=== PATIENT | male | born 1985 | race Caucasian/White ===

== ENCOUNTER 2020-01-25 13:15 | Inpatient (IN) | payer SELFPAY ==
[2020-01-25] VITALS (8 sets, daily range): BP systolic 104–124; BP diastolic 53–69; PULSE 78–98; RESP 18–20; TEMP 37.1–37.4; O2SAT 98–100; BMI 26.4
--- NOTE | ~2020-01-25 | CT_ITS ---
EXAMINATION: CT abdomen pelvis w con EXAM DATE: 01/25/2020 16:34 INDICATION: Right lower quadrant pain. Constipation. TECHNIQUE: Spiral CT of the abdomen and pelvis was performed following intravenous injection of 100 m L Omnipaque 350. Axial, coronal and sagittal images were reviewed. The dose-length product (DLP) fo r this examination was 434.22 mGy-cm. The exposure was tailored according to patient size (auto mA e xposure control), and iterative reconstruction (ASIR) was used as additional dose reduction technique . There is no prior study for comparison. FINDINGS: The liver, spleen, adrenal glands and pancreas are unremarkable. Gallbladder is unremarkab le. No biliary obstruction. Portal and splenic veins are patent. Kidneys enhance symmetrically. T here is no hydronephrosis. The prostate is unremarkable. The bladder is unremarkable. There is no retroperitoneal or pelvic lymphadenopathy. The appendix is dilated up to 1.1 cm, has some fluid inside and adjacent fat stranding. Appearance co nsistent with acute appendicitis without perforation or abscess. The stomach and small bowel are unre markable. There is expected amount of colonic stool. No free intraperitoneal gas. The heart is n ormal in size. There are no pericardial or pleural effusions. The lung bases are unremarkable. The bones are unremarkable. IMPRESSION: 1. Acute uncomplicated appendicitis. I discussed acute appendicitis with Dr. Rodriguez at 01/25/2020 16:49 CDT. Reviewed, dictated and finalized at location A.
[2020-01-25] MEDS: ONDANSETRON INJ 4 MG/2 ML VIAL IV PUSH (15:07)
[2020-01-25] MEDS: MORPHINE SULFATE 2 MG/ML INJ IV PUSH ×2 (15:07→17:30)
[2020-01-25 15:15] LABS: Hemoglobin 17.1 g/dL (14.0-18.0); Mean Corpuscular HGB Conc 34.2 g/dl (32-36); Mean Corpuscular Volume 90.7 fl (80-100); Mean Platelet Volume 10.1 fl (7.4-10.4); Platelet Count Result 251 k/mm3 (150-375); Red Blood Count 5.51 M/mm3 (4.6-6.20); Red Cell Distribution Width 13.5 % (11.5-14.5); White Blood Count 20.2 K/mm3 (4.5-10.0)
[2020-01-25 15:21] LABS: Alanine Aminotransferase 28 U/L (4-50); Albumin Level 4.5 g/dL (3.5-5.1); Alkaline Phosphatase 48 U/L (38-126); Aspartate Amino Transferase 23 U/L (17-59); Blood Urea Nitrogen 11 mg/dL (9-20); Calcium 9.5 mg/dL (8.4-10.2); Carbon Dioxide 24 mmol/L (22-30); Chloride 104 mmol/L (98-107); Estimated CRCL calculation 100 ml/min; Estimated Glomerular Filt Rate > 60; Glucose 106 mg/dL (75-110); Potassium 4.9 mmol/L (3.4-5.0); Sodium 137 mmol/L (137-145)
[2020-01-25 15:35] LABS: Band Neutrophils Percent 3 % (0-6); Lymphocytes Absolute Manual 1.61 K/mm3 (1.1-4.5); Monocytes Absolute Manual 1.01 K/mm3 (0.1-0.90); Monocytes Percent Manual 5 % (3-9); Neutrophils Absolute Manual 17.57 K/mm3 (1.3-6.7); Neutrophils Percent Manual 84 % (46-73); Platelet Estimate Adequate (Adequate); Total Cells Counted 100
--- NOTE | 2020-01-25 16:13 | ED.ABDPAIN ---
HPI - Abdominal Pain General Chief Complaint: Abdominal Pain <Arianna López PA-C - Last Filed: 01/25/20 19:17> Stated Complaint: bad stomach pain x2 days <THU Chapin Last Filed: 01/25/20 19:17> Time Seen by Provider: 01/25/20 13:35 <THU Chapin Last Filed: 01/25/20 19:17> Source: patient and family <THU Chapin Last Filed: 01/25/20 19:17> Mode of arrival: ambulatory <THU Chapin Last Filed: 01/25/20 19:17> Limitations: no limitations <HTU Chapin Last Filed: 01/25/20 19:17> History of Present Illness HPI narrative: Patient presents with chief complaint of 2 days of right lower quadrant abdominal pain that has become more severe. Patient reports some nausea and a few episodes of vomiting. Patient denies diarrhea and states that he is on stool softener hoping that having a bowel movement with improve his symptoms since he has not had 1 since Friday however he has not passed any stool. Patient denies any rectal bleeding or blood in his vomit. Patient denies any prior abdominal surgeries. Patient denies eating anything that he believes could have caused his symptoms. Patient denies fever, chills, chest pain or shortness of breath. <Arianna López PA-C - Last Filed: 01/25/20 19:17> Related Data Home Medications: Home Medications Medication Instructions Recorded Confirmed omeprazole 40 mg PO DAILY 01/25/20 01/26/20 <THU Chapin Last Filed: 01/25/20 19:17> Allergies/Adverse Reactions: Allergies Allergy/AdvReac Type Severity Reaction Status Date / Time acetaminophen Allergy Intermediate Itching Verified 01/25/20 14:28 oxycodone Allergy Intermediate Itching Verified 01/25/20 14:28 <THU Chapin Last Filed: 01/25/20 19:17> Review of Systems Review of Systems: Narrative: CONSTITUTIONAL: Denies fever, chills, or sweats. EYES: Denies visual changes, redness, or discharge. ENT: Denies rhinorrhea, congestion, sore throat, or otalgia. CARDIOVASCULAR: Denies chest pain, palpitations, or edema. RESPIRATORY: Denies cough or dyspnea. GASTROINTESTINAL: Reports abdominal pain, nausea, vomiting, reports constipation denies diarrhea. GENITOURINARY: Denies dysuria or hematuria. SKIN: Denies rash or itching. MUSCULOSKELETAL: Denies back pain, joint pain, or myalgia. NEUROLOGIC: Denies headache, numbness, dizziness, or weakness. PSYCHIATRIC: Denies anxiety or depression. <Arianna López PA-C - Last Filed: 01/25/20 19:17> [facility] Past Medical History Medical History: Medical History Pneumonia <Arianna López PA-C - Last Filed: 01/25/20 19:17> Social History Social History: Social History Smoking packs per day: 0.5 Smoking cigarettes per day: 10.0 Years smoked: 15 Smoking pack-years: 7.50 Smoking status: Current every day smoker Tobacco type: cigarettes Second hand tobacco smoke exposure: No Alcohol intake: current Drinks per week: 12 Substance use: current Substance use type: crack/cocaine Other substance usage details: occasional use Last use: 01/11/20 Gender identity (if verbalized by the patient): Male Sexual Orientation (if Verbalized by the Patient): Straight or Heterosexual Spiritual care concerns: No <Arianna López PA-C - Last Filed: 01/25/20 19:17> Exam Narrative: Exam Narrative: GENERAL: Well-appearing, well-nourished, appears uncomfortable. HEAD: Normocephalic, atraumatic. EYES: PERRLA and EOMI. ENT: Nares clear, no rhinorrhea or epistaxis. Mucous membranes moist. Oropharynx without tonsillar hypertrophy exudate or other lesions. Bilateral TMs pearly richardson nonbulging NECK: Supple. No adenopathy or masses. No carotid bruits or JVD CHEST: Clear to auscultation. No respiratory distress. No wheezes rales or rhonchi HEART: Regular rate a
[2020-01-25 16:54] LABS: Add Urine Microscopic? NO; Appearance Urine Clear (Clear); Bilirubin Urine Negative (Negative); Blood Urine Negative (Negative); Color Urine Yellow (Yellow); Glucose Urine UA Negative (Negative); Ketones Urine Negative (Negative); Leukocyte Esterase Ur Negative LEU/UL (Negative); Nitrate Urine Negative (Negative); Protein Urine Negative (Negative); Specific Grav Ur 1.017 (1.001-1.035); Urobilinogen Urine Negative mg/dL (<2.0)
[2020-01-25 17:19] LABS: Lactic Acid 1.8 mmol/L (0.7-2.1)
[2020-01-25] MEDS: SODIUM CHLORIDE 0.9% IV 1,000 ML 150 ML IV CONT (17:31)
--- NOTE | 2020-01-25 18:26 | WPDANESEPP ---
Anes - Eval Pre Procedure Procedure: Laparoscopic appendectomy Date/Time: 01/25/20 18:26 Surgeon: Sergio Preop Diagnosis: Acute appendicitis Pre Op Diagnosis: bad stomach pain x2 days Patient Data Age: 34 Gender: M Height: 6 ft Weight: 84.09 kg Last Vital Signs Temp 99.3 F 01/25/20 14:20 Pulse 86 01/25/20 17:38 Resp 20 01/25/20 17:38 BP 111/60 01/25/20 17:38 Pulse Ox 100 01/25/20 17:38 Allergies Allergy/AdvReac Type Severity Reaction Status Date / Time acetaminophen Allergy Intermediate Itching Verified 01/25/20 14:28 oxycodone Allergy Intermediate Itching Verified 01/25/20 14:28 Home Medications Medication Instructions Recorded Confirmed Type amoxicillin 500 mg PO Q12H 10 Days #20 tablet 06/04/19 Rx omeprazole 40 mg PO DAILY 01/25/20 History Laboratory Tests 01/25/20 01/25/20 01/25/20 15:01 15:01 16:39 WBC 20.2 K/mm3 H K/mm3 (4.5-10.0) RBC 5.51 M/mm3 M/mm3 (4.6-6.20) Hgb 17.1 g/dL g/dL (14.0-18.0) Hct 50.0 % % (42.0-52.0) MCV 90.7 fl fl (80-100) MCH 31.0 pg pg (26-34) MCHC 34.2 g/dl g/dl (32-36) RDW 13.5 % % (11.5-14.5) Plt Count 251 k/mm3 k/mm3 (150-375) MPV 10.1 fl fl (7.4-10.4) Immature Gran % (Auto) Not Reportable Neut % (Auto) Not Reportable Lymph % (Auto) Not Reportable [place] % (Auto) Not Reportable Eos % (Auto) Not Reportable Baso % (Auto) Not Reportable Lymph # (Auto) Not Reportable [place] # (Auto) Not Reportable Eos # (Auto) Not Reportable Baso # (Auto) Not Reportable Abs Immat Gran (auto) Not Reportable Absolute Neuts (auto) Not Reportable Absolute Nucleated RBC Not Reportable Total Counted 100 Neutrophils % (Manual) 84 % H % (46-73) Band Neutrophils % 3 % % (0-6) Lymphocytes % (Manual) 8.0 % L % (18-44) Monocytes % (Manual) 5 % % (3-9) Nucleated RBC % Not Reportable Abs Neuts (Manual) 17.57 K/mm3 H K/mm3 (1.3-6.7) Abs Lymphs (Manual) 1.61 K/mm3 K/mm3 (1.1-4.5) Abs Monocytes (Manual) 1.01 K/mm3 H K/mm3 (0.1-0.90) Platelet Estimate Adequate (Adequate) Sodium 137 mmol/L mmol/L (137-145) Potassium 4.9 mmol/L mmol/L (3.4-5.0) Chloride 104 mmol/L mmol/L (98-107) Carbon Dioxide 24 mmol/L mmol/L (22-30) BUN 11 mg/dL mg/dL (9-20) Creatinine 1.00 mg/dL mg/dL (0.7-1.3) Estim Creat Clear Calc 100 ml/min ml/min Estimated GFR > 60 (59 - ) Glucose 106 mg/dL mg/dL (75-110) Lactic Acid Calcium 9.5 mg/dL mg/dL (8.4-10.2) Total Bilirubin 1.0 mg/dL mg/dL (0.2-1.3) AST 23 U/L U/L (17-59) ALT 28 U/L U/L (4-50) Alkaline Phosphatase 48 U/L U/L (38-126) Total Protein 8.0 g/dL g/dL (6.3-8.2) Albumin 4.5 g/dL g/dL (3.5-5.1) Urine Color Yellow (Yellow) Urine Appearance Clear (Clear) Urine pH 6.0 (5.0-9.0) Ur Specific [place] 1.017 (1.001-1.035) Urine Protein Negative mg/dL mg/dL (Negative) Urine Glucose (UA) Negative mg/dL mg/dL (Negative) Urine Ketones Negative mg/dL mg/dL (Negative) Ur Blood (Man) Negative (Negative) Urine Nitrate Negative (Negative) Urine Bilirubin Negative (Negative) Urine Urobilinogen Negative mg/dL mg/dL (<2.0) Leukocyte Esterase Rfl Negative MICHOACANO/UL MICHOACANO/UL (Negative) 01/25/20 17:00 WBC RBC Hgb Hct MCV MCH MCHC RDW Plt Count MPV Immature Gran % (Auto) Neut % (Auto)
--- NOTE | 2020-01-25 20:05 | PC.NURSE ---
This patient, Mahendra Boogie, was admitted to 2 Medical Room 261-01. Patient/family oriented to hospital policies and general routines including ID bracelet, bed and alarms, visiting hours, pain management, procedures, bathroom and other care routines, personal items, smoking policy, room service/diet, and visiting hours. Valuables list has been completed. Information on how to activate the Rapid Response Team has been discussed. Patient/Family are encouraged to report perceived risks to care and to ask questions if they do not understand what they are told or what they should do.
[2020-01-25] MEDS: MORPHINE SULFATE 4 MG/ML INJ IV PUSH (22:16)
[2020-01-25] MEDS: LACTATED RINGERS 1,000 ML 100 ML IV CONT (22:52)
[2020-01-26] VITALS (18 sets, daily range): BP systolic 98–133; BP diastolic 51–82; PULSE 72–107; RESP 12–20; TEMP 36–37.9; O2SAT 93–100
[2020-01-26] MEDS: MORPHINE SULFATE 4 MG/ML INJ IV PUSH ×5 (00:56→21:57)
[2020-01-26 05:15] LABS: Basophils Percent Auto 0.2 % (0.2-1.2); Eosinophils Percent Auto 0.2 % (0-4.4); Hematocrit 44.7 % (42.0-52.0); Immature Granulocyte Absolute 0.12 K/mm3 (0.00-0.031); Immature Granulocyte Percent A 0.7 % (0-0.5); Lymphocytes Absolute Auto 2.59 K/mm3 (0.9-3.2); Lymphocytes Percent Auto 14.4 % (18.3-44.2); Mean Corpuscular HGB Conc 33.6 g/dl (32-36); Mean Corpuscular Hemoglobin 30.5 pg (26-34); Mean Platelet Volume 9.8 fl (7.4-10.4); Monocytes Absolute Auto 1.3 K/mm3 (0.1-0.6); Monocytes Percent Auto 7.4 % (2.6-8.5); Neutrophils Absolute Auto 13.9 K/mm3 (1.3-6.7); Neutrophils Percent Auto 77.1 % (45.5-73.1); Platelet Count Result 245 k/mm3 (150-375); Red Blood Count 4.91 M/mm3 (4.6-6.20); Red Cell Distribution Width 13.3 % (11.5-14.5)
--- NOTE | 2020-01-26 08:00 | PM.IMHP ---
H&P: HPI History of Present Illness Chief complaint: Acute appendicitis Narrative: Mahendra Boogie is a 34 year old male This states that he was feeling well until Friday morning 2 days ago. He states when he got up that morning he had a severe pain in the mid abdomen the gradually moved to the right lower quadrant. Because of this pain he started eating less. He felt like he needed have a bowel movement but could not. He therefore presented to the emergency room last evening. Workup in the emergency [place] [id number] scan showing that he had acute appendicitis without perforation. He was admitted and started on IV antibiotics. Review of Systems Constitutional: Constitutional: Reports as per HPI and Denies headache(s) Eyes: Eyes: Denies loss of vision and Denies eye pain ENT: Reports Normal hearing present, Denies change in voice, Denies dizziness and Denies headache(s) Cardiovascular: Cardiovascular: Denies chest pain and Denies dyspnea Respiratory: Respiratory: Denies dyspnea and Denies wheezing Gastrointestinal: Gastrointestinal: Reports abdominal pain, Reports bloating and Reports heartburn ( This is a frequent occurrence form about every 3rd night.) Comments: At home patient takes [id number] Halle pairs all for his reflux. Musculoskeletal: Musculoskeletal: Denies back pain and Denies arthralgias Neurologic: Reports Normal hearing present, Denies dizziness, Denies headache(s), Denies loss of vision and Denies memory loss Psychiatric: Psychiatric: Denies memory loss and Denies panic attacks Endocrine: Endocrine: Reports no additional endocrine complaints Hematologic/Lymphatic: Hematologic/Lymphatic: Reports no additional hematologic/lymphatic complaints Allergic/Immunologic: Allergic/Immunologic: Denies wheezing PMFSH Past Medical History Medical History GERD (gastroesophageal reflux disease) (Unknown) Pneumonia Smoker (Unknown) Family History Family History (Updated 01/26/20 @ 08:14 by Renny Hill MD) Father , Lung CA Lung cancer Mother Multiple sclerosis Social History Social History Smoking packs per day: 0.5 Smoking cigarettes per day: 10.0 Years smoked: 15 Smoking pack-years: 7.50 Smoking status: Current every day smoker Tobacco type: cigarettes Second hand tobacco smoke exposure: No Alcohol intake: current Drinks per week: 12 Substance use: current Substance use type: crack/cocaine Other substance usage details: occasional use Last use: 01/11/20 Gender identity (if verbalized by the patient): Male Sexual Orientation (if Verbalized by the Patient): Straight or Heterosexual Spiritual care concerns: No Meds Home Medications and Allergies Home Medications Medication Instructions Recorded Confirmed Type omeprazole 40 mg PO DAILY 01/25/20 01/26/20 History Allergies Allergy/AdvReac Type Severity Reaction Status Date / Time acetaminophen Allergy Intermediate Itching Verified 01/25/20 14:28 oxycodone Allergy Intermediate Itching Verified 01/25/20 14:28 Vital Signs Vital Signs - 24 hr 01/25/20 14:20 01/25/20 14:25 01/25/20 15:11 Temperature 37.4 C Pulse Rate 98 83 78 Respiratory Rate 18 18 18 Blood Pressure 104/56 L 111/65 108/69 Pulse Oximetry 98 99 98 01/25/20 15:58 01/25/20 17:38 01/25/20 20:00 Temperature 37.1 C Pulse Rate 88 86 91 Respiratory Rate 18 20 20 Blood Pressure 114/64 111/60 109/53 L Pulse Oximetry 98 100 100 01/25/20 20:16 01/25/20 22:00 01/26/20 00:00 Temperature 37.1 C 36.4 C L Pulse Rate 83 92 83 Respiratory Rate 18 20 20 Blood Pressure 124/62 112/57 L 108/51 L Pulse Oximetry 99 100 100 01/26/20 04:00 01/26/20 06:00 Temperature 37.2 C 37.2 C Pulse Rate 88 97 Respiratory Rate 20 20 Blood Pressure 98/57 L 119/51 L Pulse Oximetry 100 100 Exam Const: General: cooperative, n
[2020-01-26 08:10] LABS: Blood Urea Nitrogen 12 mg/dL (9-20); Calcium 8.6 mg/dL (8.4-10.2); Carbon Dioxide 27 mmol/L (22-30); Chloride 100 mmol/L (98-107); Estimated CRCL calculation 84 ml/min; Estimated Glomerular Filt Rate > 60; Glucose 95 mg/dL (75-110); Magnesium 1.6 mg/dL (1.6-2.3); Potassium 3.9 mmol/L (3.4-5.0); Sodium 135 mmol/L (137-145)
[2020-01-26] MEDS: FAMOTIDINE 20 MG TABLET PO ×2 (09:14→21:53)
[2020-01-26] MEDS: LACTATED RINGERS 1,000 ML 100 ML IV CONT ×2 (10:52→15:12)
--- NOTE | 2020-01-26 10:53 | PC.NURSE ---
To OR per hospital bed, IV locked and intact. Report given to LUCILLE Galdamez.
[2020-01-26] MEDS: LACTATED RINGERS 1,000 ML 30 ML IV CONT ×2 (11:10→13:14)
--- NOTE | 2020-01-26 11:16 | WPDANESEPPF ---
Anes - Initial Pre Proc Eval Procedure: Operation Date: 01/26/20 12:00 Proposed Procedures p Laparoscopic Appendectomy - Renny Hill MD Date/Time: 01/26/20 11:16 Surgeon: Renny Hill MD Pre Op Diagnosis: Acute appendicitis Patient Data Age: 34 Gender: M Height: 6 ft Weight: 88.3 kg Last Vital Signs Temp 97.5 F L 01/26/20 10:00 Pulse 98 01/26/20 10:00 Resp 12 01/26/20 10:00 BP 104/56 L 01/26/20 10:00 Pulse Ox 99 01/26/20 10:00 Allergies Allergy/AdvReac Type Severity Reaction Status Date / Time acetaminophen Allergy Intermediate Itching Verified 01/26/20 11:14 oxycodone Allergy Intermediate Itching Verified 01/26/20 11:14 Home Medications Medication Instructions Recorded Confirmed Type omeprazole 40 mg PO DAILY 01/25/20 01/26/20 History Laboratory Tests 01/25/20 01/25/20 01/25/20 15:01 15:01 16:39 WBC 20.2 K/mm3 H K/mm3 (4.5-10.0) RBC 5.51 M/mm3 M/mm3 (4.6-6.20) Hgb 17.1 g/dL g/dL (14.0-18.0) Hct 50.0 % % (42.0-52.0) MCV 90.7 fl fl (80-100) MCH 31.0 pg pg (26-34) MCHC 34.2 g/dl g/dl (32-36) RDW 13.5 % % (11.5-14.5) Plt Count 251 k/mm3 k/mm3 (150-375) MPV 10.1 fl fl (7.4-10.4) Immature Gran % (Auto) Not Reportable Neut % (Auto) Not Reportable Lymph % (Auto) Not Reportable [place] % (Auto) Not Reportable Eos % (Auto) Not Reportable Baso % (Auto) Not Reportable Lymph # (Auto) Not Reportable [place] # (Auto) Not Reportable Eos # (Auto) Not Reportable Baso # (Auto) Not Reportable Abs Immat Gran (auto) Not Reportable Absolute Neuts (auto) Not Reportable Absolute Nucleated RBC Not Reportable Total Counted 100 Neutrophils % (Manual) 84 % H % (46-73) Band Neutrophils % 3 % % (0-6) Lymphocytes % (Manual) 8.0 % L % (18-44) Monocytes % (Manual) 5 % % (3-9) Nucleated RBC % Not Reportable Abs Neuts (Manual) 17.57 K/mm3 H K/mm3 (1.3-6.7) Abs Lymphs (Manual) 1.61 K/mm3 K/mm3 (1.1-4.5) Abs Monocytes (Manual) 1.01 K/mm3 H K/mm3 (0.1-0.90) Platelet Estimate Adequate (Adequate) Sodium 137 mmol/L mmol/L (137-145) Potassium 4.9 mmol/L mmol/L (3.4-5.0) Chloride 104 mmol/L mmol/L (98-107) Carbon Dioxide 24 mmol/L mmol/L (22-30) BUN 11 mg/dL mg/dL (9-20) Creatinine 1.00 mg/dL mg/dL (0.7-1.3) Estim Creat Clear Calc 100 ml/min ml/min Estimated GFR > 60 (59 - ) Glucose 106 mg/dL mg/dL (75-110) Lactic Acid Calcium 9.5 mg/dL mg/dL (8.4-10.2) Magnesium Total Bilirubin 1.0 mg/dL mg/dL (0.2-1.3) AST 23 U/L U/L (17-59) ALT 28 U/L U/L (4-50) Alkaline Phosphatase 48 U/L U/L (38-126) Total Protein 8.0 g/dL g/dL (6.3-8.2) Albumin 4.5 g/dL g/dL (3.5-5.1) Urine Color Yellow (Yellow) Urine Appearance Clear (Clear) Urine pH 6.0 (5.0-9.0) Ur Specific [place] 1.017 (1.001-1.035) Urine Protein Negative mg/dL mg/dL (Negative) Urine Glucose (UA) Negative mg/dL mg/dL (Negative) Urine Ketones Negative mg/dL mg/dL (Negative) Ur Blood (Man) Negative (Negative) Urine Nitrate Negative (Negative) Urine Bilirubin Negative (Negative) Urine Urobilinogen Negative mg/dL mg/dL (<2.0) Leukocyte Esterase Rfl Negative MICHOACANO/UL MICHOACANO/UL (Negative) 01/25/20 01/26/20 01/26/20 17:00 05:04 07:29 WBC 18.0 K/mm3 H K/mm3 (4.5-10.0) RBC 4.91 M/mm3 M/mm3 (4.6-6.20) Hgb
[2020-01-26] MEDS: BUPIVACAINE/EPINEPHRINE 0.5% 30 ML VIAL INFILTRATE (12:39)
--- NOTE | 2020-01-26 13:02 | PM.PROC ---
Procedure Note - Detailed Date of procedure: 01/26/20 Pre-op diagnosis: Acute appendicitis Procedure performed: Laparoscopic Appendectomy Description of procedure: The patient was seen again in the Holding Room. The risks, benefits, complications, treatment options, and expected outcomes were discussed with the patient and/or family. The possibilities of reaction to medication, pulmonary aspiration, perforation of viscus, bleeding, recurrent infection, finding a normal appendix, the need for additional procedures, failure to diagnose a condition, and creating a complication requiring transfusion or operation were discussed. There was concurrence with the proposed plan and informed consent was obtained. The site of surgery was properly noted/marked. The patient was taken to Operating Room, and a time out was preformed which identified this as the proper patient, and the procedure verified as laparoscopic appendectomy, possible open. The patient was placed in the supine position and general anesthesia was induced, along with placement of orogastric tube, SCD hose, and a Fields catheter. The abdomen was prepped and draped in a sterile fashion. A 5 mm umbilical incision was made and the peritoneal cavity was accessed using the Veress needle technique. Once the abdomen was insufflated to 14 mmHg pressure a 5 mm XL trocar over the 0? 5 mm scope was carefully twisted into the abdomen via the umbilicus. The pneumoperitoneum was then established to steady pressure of 14 mm Hg. A 12 mm laparoscopic port was placed through a transverse suprapubic incision. An additional 5 mm cannula was then placed in the left lower quadrant of the abdomen at a level half way between the umbilicus and pubic symphysis under direct vision. A careful evaluation of the entire abdomen was carried out. The patient was placed in Trendelenburg and left lateral decubitus position. The small intestines were retracted in the cephalad and left lateral direction away from the pelvis and right lower quadrant. The patient was found to have an enlarged and inflamed appendix that was extending [into the right side of the pelvis. Patient appeared to have a walled-off perforation of the midportion of his appendix against the right lateral sidewall. There was a small abscess cavity containing some yellowish green pus in this area. Most of this was successfully suctioned away with the suction workplace relations adviser.. The appendix was carefully dissected. Once it was free a 45 mm ethicon endogastroentestinal stapler with a vascular load was placed across the mesoappendix. This was fired and hemostasis was checked along the staple line and appeared to be adequate. For this patient, this divided the entire mesoappendix and we were able to proceed immediately to stapling off the appendix at it's junction with the cecum. The appendix was then divided at its base using the same 45 mm stapler with a 3.5 mm bowel wall load. Minimal appendiceal stump was left in place. There was no evidence of bleeding, leakage, or complication after division of the appendix at its junction with the cecum.. The appendix was then placed in an endobag which had been brought through the 12 mm suprapubic port site. The appendix and the bag were then extracted through this larger port site in the suprapubic position. The suprapubic port site was closed using a #0 Polysorb suture passed with a standard needle broderick externally through the an incision at the level of the fascia. The trocar site skin wounds were closed using 4-0 undyed Monocryl and surgical glue. Instrument, sponge, and needle counts were correct at the conclusion of the case. Anesthesia: GETA Surgeon: Renny Hill MD Wad Blanking Press Adjuster: LUCILLE Holliday, OR 1st assist Estimated blood loss (mL): 10 Drains: No Packing: No Pathology: yes Complications: No immediate complications Condition: stable Disposition: PACU Findings: The appendix was curled between the cecum and the right latera
--- NOTE | 2020-01-26 13:49 | SUR.PHASEI ---
1349 - Dr. Hill at bedside talking to pt.
--- NOTE | 2020-01-26 14:41 | PC.NURSE ---
Pt returned from OR via hospital bed. IV intact. Report received from LUCILLE Dhillon.
[2020-01-26] MEDS: SENNA/DOCUSATE SODIUM TABLET 2 TAB PO (21:53)
[2020-01-26] MEDS: PANTOPRAZOLE 40 MG TABLET PO (21:54)
[2020-01-27] VITALS (8 sets, daily range): BP systolic 104–120; BP diastolic 45–63; PULSE 68–88; RESP 15–18; TEMP 36.3–36.8; O2SAT 96–99
[2020-01-27] MEDS: MORPHINE SULFATE 4 MG/ML INJ IV PUSH (01:19)
[2020-01-27 05:32] LABS: Hematocrit 40.8 % (42.0-52.0); Mean Corpuscular HGB Conc 34.3 g/dl (32-36); Mean Corpuscular Hemoglobin 30.8 pg (26-34); Mean Corpuscular Volume 89.9 fl (80-100); Mean Platelet Volume 9.9 fl (7.4-10.4); Platelet Count Result 237 k/mm3 (150-375); Red Blood Count 4.54 M/mm3 (4.6-6.20); Red Cell Distribution Width 12.9 % (11.5-14.5); White Blood Count 20.7 K/mm3 (4.5-10.0)
[2020-01-27 05:57] LABS: Anion Gap 11.9 mmol/L (7-16); Blood Urea Nitrogen 10 mg/dL (9-20); Carbon Dioxide 25 mmol/L (22-30); Chloride 103 mmol/L (98-107); Estimated CRCL calculation 123 ml/min; Estimated Glomerular Filt Rate > 60; Glucose 136 mg/dL (75-110); Potassium 3.9 mmol/L (3.4-5.0); Sodium 136 mmol/L (137-145)
[2020-01-27] MEDS: FAMOTIDINE 20 MG TABLET PO (09:04)
[2020-01-27] MEDS: PANTOPRAZOLE 40 MG TABLET PO ×2 (09:04→20:32)
--- NOTE | 2020-01-27 09:38 | WPDANESPN ---
Anes - Prog Note Post-Op Date/Time: 01/27/20 09:38 Cardiovascular status: normal Respiratory status: normal Airway patency: baseline Mental status: baseline Post-Op hydration status: normal Vital Signs: Last Vital Signs Temp 36.3 C L 01/27/20 06:00 Pulse 88 01/27/20 06:00 Resp 18 01/27/20 06:00 BP 108/59 L 01/27/20 06:00 Pulse Ox 97 01/27/20 06:00 I/O: Intake & Output 01/26/20 01/27/20 01/27/20 23:59 07:59 15:59 Intake Total 970 850 290 Balance 970 850 290 Laboratory Tests 01/27/20 05:17 01/27/20 05:17 01/27/20 01/27/20 05:17 05:17 WBC 20.7 H RBC 4.54 L Hgb 14.0 Hct 40.8 L MCV 89.9 MCH 30.8 MCHC 34.3 RDW 12.9 Plt Count 237 MPV 9.9 Sodium 136 L Potassium 3.9 Chloride 103 Carbon Dioxide 25 Anion Gap 11.9 BUN 10 Creatinine 0.80 Estim Creat Clear Calc 123 Estimated GFR > 60 Glucose 136 H Calcium 9.0 Microbiology 01/25/20 17:00 Blood Blood Culture - Preliminary 01/25/20 17:00 Blood Blood Culture - Preliminary Post-procedural complaints: none Patient Feedback: Patient satisfied with anesthetic care.
--- NOTE | 2020-01-27 10:49 | PM.PNGS ---
Progress Note: A&P Assessment and Plan (1) Acute appendicitis: Onset Date: ~01/24/20 Qualifiers: Acute appendicitis type: with localized peritonitis Appendicitis abscess presence: without abscess Appendicitis gangrene presence: without gangrene Appendicitis perforation presence: without perforation Qualified Code(s): K35.30 - Acute appendicitis with localized peritonitis, without perforation or gangrene Code(s): K35.80 - Unspecified acute appendicitis Status: Acute Assessment and Plan: POD#1 and doing well. Tolerating soft regular diet. Adjusted the frequency of his pain medication to hopefully improve his pain control. Stop IV pain medication. During surgery yesterday, he appeared to have a walled off perforation with a small abscess. Due to this, we will keep him in today and on IV antibiotics. Will then plan on switching him to oral antibiotics eventually on discharge. WBC 20,000 today. He has been afebrile since surgery. Will repeat labs again tomorrow morning and continue IV antibiotics. Encouraged increased activity, walking the halls, and IS use today. (2) GERD (gastroesophageal reflux disease): Onset Date: Unknown Code(s): K21.9 - Gastro-esophageal reflux disease without esophagitis Status: Acute (3) Smoker: Onset Date: Unknown Code(s): F17.200 - Nicotine dependence, unspecified, uncomplicated Status: Acute Additional Plan Discussed plan of care with Dr. Hill today. Subjective Subjective Date/Time Seen: 01/27/20 09:30 Post Op day: 1 (lap appy) Patient reports: pain is less, tolerating a regular diet, voiding w/o difficulty, flatus and no bowel movement Interval history: Patient seen and examined. He reports that his abdominal pain prior to surgery has completely subsided and now he just has some abdominal soreness. He feels his pain is being controlled with the oral pain medication but only last about 3-4 hours. He denies any nausea, vomiting, or bloating. Reports flatus, no BM. Tolerating breakfast this morning. No other complaints at this time. Review of Systems Review of Systems: All systems reviewed & are unremarkable except as noted in HPI and below Constitutional: Constitutional: Reports no additional constitutional complaints, Denies chills, Denies fever(s) and Denies weakness Cardiovascular: Cardiovascular: Reports no additional cardiovascular complaints, Denies chest pain, Denies pedal edema and Denies leg edema Respiratory: Respiratory: Reports no additional respiratory complaints, Denies cough, Denies dyspnea and Denies wheezing Gastrointestinal: Gastrointestinal: Reports as per HPI, Reports no additional gastrointestinal complaints, Denies nausea and Denies vomiting Genitourinary: Genitourinary: Reports no additional male genitourinary complaints and Reports as per HPI Exam Const: General: comfortable, no acute distress, alert and awake Orientation/consciousness: patient oriented x3 Resp: Effort & Inspection: normal respiratory effort and able to speak in complete sentences Auscultation: clear to auscultation bilaterally Cardio: Rate: regular rate Rhythm: regular rhythm GI: Inspection: non-distended and incision (Abdominal incisions clean/dry/intact.) GI Palp: Yes Soft to palpation, Yes Tenderness to palpation present (GI) (incisional and RLQ), No Guarding due to palpation present (GI) and No Rebound tenderness present Auscultation: normal bowel sounds Neuro: General: patient oriented x3 and moves all extremities Cranial nerves: Yes CN's II-XII intact bilaterally Speech: normal speech Extrem: General: no calf tenderness and no edema Psych: Mental Status: mental status grossly normal Attitude: cooperative Thought process: Normal thought process present Thought content: Yes Normal thought content present Objective Data Vital Signs Vital Signs: Vital Signs - 24 hr 01/26/20 11:15 01/26/20 13:14 01/26/20 13:20 Tem
[2020-01-27] MEDS: BISACODYL 5 MG TABLET EC PO (17:55)
[2020-01-27] MEDS: NICOTINE (*PBKC) 14 MG PATCH 1 PATCH TRANSDERM (20:30)
[2020-01-27] MEDS: SENNA/DOCUSATE SODIUM TABLET 2 TAB PO (20:32)
[2020-01-28 02:00] VITALS: BP 117/59; PULSE 71; RESP 20; TEMP 36.5; O2SAT 99
[2020-01-28 05:39] VITALS: BP 118/55; PULSE 70; RESP 18; TEMP 36.9; O2SAT 100
[2020-01-28] MEDS: BISACODYL 5 MG TABLET EC PO (05:45)
[2020-01-28 05:53] LABS: Hemoglobin 13.3 g/dL (14.0-18.0); Mean Corpuscular HGB Conc 34.1 g/dl (32-36); Mean Corpuscular Hemoglobin 31.2 pg (26-34); Mean Corpuscular Volume 91.5 fl (80-100); Mean Platelet Volume 10.5 fl (7.4-10.4); Platelet Count Result 237 k/mm3 (150-375); Red Blood Count 4.26 M/mm3 (4.6-6.20); Red Cell Distribution Width 13.3 % (11.5-14.5); White Blood Count 16.5 K/mm3 (4.5-10.0)
--- NOTE | 2020-01-28 09:47 | PM.DS ---
DS: Admitting Diagnosis Admitting Diagnosis Admitting Diagnosis: Acute appendicitis with localized peritonitis, without perforation or gangrene Smoker GERD DS: Discharge Diagnosis Discharge Diagnosis (1) Acute appendicitis: Onset Date: ~01/24/20 Qualifiers: Acute appendicitis type: with localized peritonitis Appendicitis abscess presence: without abscess Appendicitis gangrene presence: without gangrene Appendicitis perforation presence: without perforation Qualified Code(s): K35.30 - Acute appendicitis with localized peritonitis, without perforation or gangrene Code(s): K35.80 - Unspecified acute appendicitis Status: Acute Assessment and Plan: This was the main reason for the patient's admission. He is progressing well postoperatively. Pathology was discussed with the patient this date and showed that he did have perforation in the appendix. (2) GERD (gastroesophageal reflux disease): Onset Date: Unknown Code(s): K21.9 - Gastro-esophageal reflux disease without esophagitis Status: Acute Assessment and Plan: Patient will take once a day daily Protonix at home upon discharge. (3) Smoker: Onset Date: Unknown Code(s): F17.200 - Nicotine dependence, unspecified, uncomplicated Status: Acute Assessment and Plan: Have discussed with patient possible smoking cessation. He states that he does not desire a cigarette right now and may use the nicotine patches and try to stop smoking. DS: Summary Hospital Course Reason for hospitalization: Acute appendicitis with perforation Hospital Course: patient had uneventful postoperative hospital course. Initially presented to ER with abdominal pain for [address] scan suggest acute appendicitis but did not suggest perforation. However, at the time of operation patient was found to have a walled off perforation between the appendix and then the sidewall of the abdomen lateral to the right colon. This was able to be carefully dissected. The purulence controlled with suction and the appendix removed in a bag. Patient has had mild constipation following his procedure but will be taking a duplex suppository prior to discharge. He will also use MiraLax at home with he has any trouble. He will follow a soft diet until he has a bowel movement. Only instructions given see below. Patient will follow up in the office in approximately 7-10 days. He will complete a 10 day course of antibiotics completing them at home with Ashu and Leila. Time spent discussing smoking cessation with patient: 3 to 10 minutes Status at Discharge Cognitive/behavioral status at discharge: Normal Functional status at discharge: independent ambulation Overall status at discharge: patient is back to baseline Time Spent with Patient Time attestation: Total time spent providing and/or coordinating discharge services: 30 minutes Specific discharge activities: encouraged patient to take the incentive spirometer home with him and use it for 2 or 3 more days. Encouraged smoking cessation Encouraged walking as activity until he comes back to the office. 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 Emphasize importance of regular schedule for his antibiotics and completing the antibiotic course completely. Exam Const: General: cooperative, no acute distress, alert and awake Orientation/consciousness: patient oriented x3 HENMT: Mouth: Yes moist mucous membranes Neck: Neck: normal visual inspection Chest: Chest palpation & inspection: normal inspection of the chest Resp: Effort & Inspection: normal respiratory effort Auscultation: clear to auscultation bilaterally Cardio: Jugular venous distension: no JVD Rate: regular rate Rhythm: regular rhythm GI: Inspection: incision ( Surgical glue in place, no surrounding erythema) GI Palp: Yes Soft to palpation Rectal Exam: deferred Neuro: Genera
[2020-01-28 10:00] VITALS: BP 113/58; PULSE 60; RESP 12; TEMP 35.9; O2SAT 99
[2020-01-28] MEDS: NICOTINE (*PBKC) 14 MG PATCH 1 PATCH TRANSDERM (10:00)
[2020-01-28] MEDS: PANTOPRAZOLE 40 MG TABLET PO (10:01)
[2020-01-28] MEDS: BISACODYL 10 MG SUPPOSITORY RECTAL (10:01)
--- NOTE | 2020-01-28 10:19 | PC.NURSE ---
Encouraged patient to be up and ambulating in room and even in hallways. Patient verbalized understanding.
== END 2020-01-28 12:32 | disposition home or self-care (01) | DRG 233 ==
LOC: ANHED 18:08 → ANH2MED 18:44
PROVIDERS: Nurse Practitioner Family; Physician Assistant; Admitting Provider Surgery; Emergency Provider Emergency Medicine; Visit Provider Surgery
PROC: 0DTJ4ZZ Resection of Appendix, Percutaneous Endoscopic Approach (ICD-10-PCS; CPT 44970; principal; 2020-01-26 12:00)
DX: K35.33 Acute appendicitis with perforation, localized peritonitis, and gangrene, with abscess (principal); F17.210 Nicotine dependence, cigarettes, uncomplicated; K21.9 Gastro-esophageal reflux disease without esophagitis; K59.00 Constipation, unspecified
CPT/HCPCS: 36415; 74177; 80048; 80053; 81003; 83605; 83735; 85025; 85027; 87040; 88304; 96365; 96375; 96376; 99285; A9270; J0330; J1100; J1170; J2250; J2270; J2405; J2543; J2704; J2710; J3010; J7030; J7120; Q9967

== ENCOUNTER 2021-10-19 16:01 | Emergency (ER) | payer OTHER, SELFPAY ==
--- NOTE | ~2021-10-19 | XR_ITS ---
XR chest 2V DATE: 10/19/2021 16:46 INDICATION: Productive cough today. Smoker. TECHNIQUE: 2 views COMPARISON: 07/13/2008 one view chest FINDINGS: Normal heart size. No hilar or mediastinal enlargement. No pulmonary infiltrate or consolid ation, pleural effusion or pulmonary vascular congestion or pneumothorax. Included skeletal structure s are unremarkable. IMPRESSION: Negative Reviewed, dictated and finalized at location A. IMPRESSION: Negative
[2021-10-19 16:07] VITALS: BP 100/77; PULSE 87; RESP 16; TEMP 36.8; O2SAT 99
--- NOTE | 2021-10-19 16:45 | ED.URI ---
HPI - URI/Sore Throat General Chief Complaint: Upper Respiratory Infection Stated Complaint: cp/sob/sore throat/fever Time Seen by Provider: 10/19/21 16:45 Source: patient, RN notes reviewed and old records reviewed Mode of arrival: ambulatory Limitations: no limitations History of Present Illness HPI Narrative: 36-year-old male presents to the [facility] with complaints of chest wall pain with coughing, shortness of breath, sore throat and subjective fevers. Symptoms started last night. No treatment prior to arrival Related Data Home Medications Medication Instructions Recorded Confirmed omeprazole 40 mg PO DAILY 01/25/20 10/19/21 Allergies Allergy/AdvReac Type Severity Reaction Status Date / Time acetaminophen Allergy Intermediate Itching Verified 10/19/21 16:13 oxycodone Allergy Intermediate Itching Verified 10/19/21 16:13 Review of Systems Review of Systems: All systems reviewed & are unremarkable except as noted in HPI and below Constitutional: Constitutional: Reports no additional constitutional complaints, Denies chills, Denies fever(s) and Denies headache(s) Eyes: Eyes: Reports no additional eye complaints ENT: Reports as per HPI, Denies vertigo, Denies dizziness, Denies headache(s), Reports nasal congestion and Reports sore throat Cardiovascular: Cardiovascular: Reports no additional cardiovascular complaints, Denies chest pain, Denies syncope, Denies rapid heart rate and Denies dyspnea Respiratory: Respiratory: Reports as per HPI, Reports chest congestion, Reports cough, Denies dyspnea and Denies wheezing Gastrointestinal: Gastrointestinal: Reports no additional gastrointestinal complaints, Denies abdominal pain, Denies diarrhea, Denies nausea and Denies vomiting Musculoskeletal: Musculoskeletal: Reports no additional musculoskeletal complaints and Denies numbness Integumentary/Breasts: Skin/Breast: Reports system reviewed and no additional complaints, except as docu Neurologic: Reports system reviewed and no additional complaints, except as documented, Denies vertigo, Denies dizziness, Denies syncope, Denies headache(s), Denies focal weakness and Denies numbness Psychiatric: Psychiatric: Reports no additional psychiatric complaints Allergic/Immunologic: Allergic/Immunologic: Reports no additional allergic/immunologic complaints [facility] Past Medical History Medical History GERD (gastroesophageal reflux disease) (Unknown) Pneumonia Smoker (Unknown) Surgical History Surgical History History of laparoscopic appendectomy 01/26/20 Family History Family History Father , Lung CA Lung cancer Mother Multiple sclerosis Social History Social History Smoking packs per day: 0.5 Smoking cigarettes per day: 10.0 Years smoked: 15 Smoking pack-years: 7.50 Smoking status: Current every day smoker Tobacco type: cigarettes Second hand tobacco smoke exposure: No Alcohol intake: current Drinks per week: 12 Substance use: current Substance use type: crack/cocaine Other substance usage details: occasional use Last use: 01/11/20 Gender identity (if verbalized by the patient): Male Sexual Orientation (if Verbalized by the Patient): Straight or Heterosexual Spiritual care concerns: No Comments At the time of my signature, I reviewed and agree with the nursing past medical, surgical, social, and family history. There is no relevant family history pertinent to the patient complaint. Exam Const: General: cooperative, healthy appearing, no acute distress, well developed and alert Nutritional Appearance: well nourished Orientation/consciousness: patient oriented x3 Limitations: no limitations HENMT: Head: normal to inspection Ears: external ears normal, TM's normal bilaterally and EAC's normal General nose
== END 2021-10-19 17:24 | disposition home or self-care (01) ==
PROVIDERS: Emergency Provider Nurse Practitioner
DX: J02.9 Acute pharyngitis, unspecified (principal); J40 Bronchitis, not specified as acute or chronic; F17.210 Nicotine dependence, cigarettes, uncomplicated; K21.9 Gastro-esophageal reflux disease without esophagitis; F11.90 Opioid use, unspecified, uncomplicated
CPT/HCPCS: 71046; 87081; 87804; 87880; 99213; G0463

== ENCOUNTER 2023-01-07 15:22 | Emergency (ER) | payer OTHER, SELFPAY ==
--- NOTE | ~2023-01-07 | XR_ITS ---
Right wrist Technique: PA, oblique, lateral, and ulnar deviation views were obtained. Clinical History: Pain Findings: No acute fracture or dislocation is seen. Osseous alignment is anatomic. Joint spaces are p reserved. Soft tissues are unremarkable. Impression: Unremarkable right wrist radiographs. Reviewed, dictated and finalized at location . Impression: Unremarkable right wrist radiographs.
--- NOTE | ~2023-01-07 | XR_ITS ---
Impression: Suspected radiographically occult radial head fracture with associated elbow tarsha int effusion. Right elbow Technique: AP, oblique, and lateral views were obtained. Clinical History: Pain Findings: There is probable displacement of the fat pads and small joint effusion. This is suspicious for radiographically occult radial head fracture. Osseous alignment appears essentially anatomic.. Impression: Suspected radiographically occult radial head fracture with associated elbow joint effusion. Reviewed, dictated and finalized at location .
[2023-01-07 15:26] VITALS: BP 123/75; PULSE 91; RESP 18; TEMP 36.1; O2SAT 99
[2023-01-07] MEDS: HYDROcodone/acetaminophen (*CRX) 5-325 MG TABLET 1 TAB PO (15:51)
--- NOTE | 2023-01-07 16:04 | ED.GENADULT ---
HPI - General Adult General Chief complaint: Extremity Injury, Upper Stated complaint: fell yesterday - right arm pain Time Seen by Provider: 01/07/23 15:32 History of Present Illness HPI narrative: Patient is a 37-year-old male who presents ER with right elbow pain. He was out in the yard with his son yesterday playing with water balloons when he fell forward on outstretched arm. Sudden onset pain in the elbow. Increased swelling and discomfort today. Pain is worse with supination. No numbness or tingling. He did not strike his head or lose consciousness. Related Data Home Medications Medication Instructions Recorded Confirmed omeprazole 40 mg capsule,delayed 40 mg PO DAILY 01/25/20 10/19/21 release Allergies Allergy/AdvReac Type Severity Reaction Status Date / Time acetaminophen Allergy Intermediate Itching Verified 01/07/23 15:27 oxycodone Allergy Intermediate Itching Verified 01/07/23 15:27 Review of Systems Musculoskeletal: Musculoskeletal: Reports arthralgias, Reports joint swelling and Denies muscle cramps Neurologic: Denies syncope, Denies focal weakness and Denies numbness PMFSH Past Medical History Medical History GERD (gastroesophageal reflux disease) (Unknown) Pneumonia Smoker (Unknown) Surgical History Surgical History History of laparoscopic appendectomy 01/26/20 Family History Family History Father , Lung CA Lung cancer Mother Multiple sclerosis Social History Social History Smoking packs per day: 0.5 Smoking cigarettes per day: 10.0 Years smoked: 15 Smoking pack-years: 7.50 Smoking status: Current every day smoker Tobacco type: cigarettes Second hand tobacco smoke exposure: No Alcohol intake: current Drinks per week: 12 Substance use: current Substance use type: crack/cocaine Other substance usage details: occasional use Last use: 01/11/20 Gender identity (if verbalized by the patient): Male Sexual Orientation (if Verbalized by the Patient): Straight or Heterosexual Spiritual care concerns: No Exam Narrative: GENERAL: Well-appearing, well-nourished, and in no acute distress. HEAD: Normocephalic, atraumatic. CHEST: Clear to auscultation. No respiratory distress. HEART: Regular rate and rhythm. Normal peripheral pulses. EXTREMITIES: Right elbow with swelling and tenderness at the radial head, worsening with supination. Normal flexion extension at the wrist and the elbow. Neurovascular intact. SKIN: Warm, dry, no rash. NEURO: Alert and oriented x3. PSYCH: Normal mood and affect. Course Course Emergency Course: Patient informed of results. Given a sling for comfort. Discharge home. Vital Signs Vital signs: Vital Signs Temperature 97.0 F L 01/07/23 15:26 Pulse Rate 91 01/07/23 15:26 Respiratory Rate 18 01/07/23 15:26 Blood Pressure 123/75 01/07/23 15:26 Pulse Oximetry 99 01/07/23 15:26 Oxygen Delivery Room Air 01/07/23 15:26 Temperature 97.0 F L 01/07/23 15:26 Pulse Rate 91 01/07/23 15:26 Respiratory Rate 18 01/07/23 15:26 Blood Pressure 123/75 01/07/23 15:26 Pulse Oximetry 99 01/07/23 15:26 Oxygen Delivery Room Air 01/07/23 15:26 Medical Decision Making Vital Signs Vital Signs: Vital Signs Temperature 97.0 F L 01/07/23 15:26 Pulse Rate 91 01/07/23 15:26 Respiratory Rate 18 01/07/23 15:26 Blood Pressure 123/75 01/07/23 15:26 Pulse Oximetry 99 01/07/23 15:26 Oxygen Delivery Room Air 01/07/23 15:26 Temperature 97.0 F L 01/07/23 15:26 Pulse Rate 91 01/07/23 15:26 Respiratory Rate 18 01/07/23 15:26 Blood Pressure 123/75 01/07/23 15:26 Pulse Oximetry 99 01/07/23 15:26 Oxygen Delivery Room Air 01/07/23 15:26 Imaging Data Radiologist's impression:
== END 2023-01-07 16:10 | disposition home or self-care (01) ==
PROVIDERS: Emergency Provider Emergency Medicine
DX: S52.121A Displaced fracture of head of right radius, initial encounter for closed fracture (principal); K21.9 Gastro-esophageal reflux disease without esophagitis; Z87.01 Personal history of pneumonia (recurrent); F17.210 Nicotine dependence, cigarettes, uncomplicated; W18.30XA Fall on same level, unspecified, initial encounter
CPT/HCPCS: 73080; 73110; 99284; A4565; A9270